=== PATIENT | male | born 1970 | race Two or more races ===

== ENCOUNTER 2023-09-12 05:15 | Emergency (ER) | payer MEDICAID ==
[~2023-09-12] VITALS: Ht 170.2 cm; Wt 74.8 kg
[2023-09-12] MEDS ORDERED: ACETAMINOPHEN ES 500 MG TABLET ONE ×2 (05:29→05:30)
[2023-09-12] MEDS: ACETAMINOPHEN 325 MG TABLET PO ONE (05:33)
[2023-09-12] MEDS ORDERED: CYCL5TAB PO (07:49)
[2023-09-12] MEDS ORDERED: IBUP-1955 PO (07:49)
[2023-09-12 08:24] VITALS: BP 152/84; TEMP 98.1; O2SAT 98
== END 2023-09-12 08:24 | disposition home or self-care (01) ==
LOC: ER 05:20
DX: R07.81 Pleurodynia (principal); V89.2XXA Person injured in unspecified motor-vehicle accident, traffic, initial encounter; Y93.89 Activity, other specified; Y92.89 Other specified places as the place of occurrence of the external cause; Y99.8 Other external cause status
CPT/HCPCS: 71100-TC